=== PATIENT | male | born 2000 | race Caucasian/White ===

== ENCOUNTER 2018-09-27 22:01 | Emergency (ER) | payer OTHER ==
[2018-09-27] MEDS: HYDROCODONE/APAP (10/325) TAB PO (22:33)
[2018-09-27] MEDS: DIPHTH/TET/ACEL PERTUSS (ADULT) 0.5 ML VIAL IM* (22:34)
[2018-09-27] MEDS: LIDOCAINE 1% (MDV) 20 ML INJ SC (22:38)
[2018-09-28] MEDS: BACITRACIN 0.9 GM OINT TOP (00:50)
== END 2018-09-28 00:56 | disposition home or self-care (01) ==
LOC: FTE 09-28 00:56
DX: S91.312A Laceration without foreign body, left foot, initial encounter (principal); W25.XXXA Contact with sharp glass, initial encounter; Y92.9 Unspecified place or not applicable
CPT/HCPCS: 12002; 73630; 90471; 90715; 99283-25